=== PATIENT | female | born 1960 | race Two or more races ===

== ENCOUNTER 2024-10-11 11:48 | Emergency (ER) | payer OTHER ==
[~2024-10-11] VITALS: Ht 160 cm; Wt 72.6 kg
[2024-10-11] MEDS ORDERED: CLONAZEPAM0.5 MG PO (12:20)
[2024-10-11] MEDS ORDERED: NORVASC2.5 M1 PO (12:21)
[2024-10-11] MEDS ORDERED: PROZAC10 MG PO (12:21)
[2024-10-11] MEDS ORDERED: KETOROLAC TROMETHAMINE 30 MG VIAL ONE (13:41)
[2024-10-11] MEDS ORDERED: MAG HYDROX/ALUMINUM HYD/SIMETH 30 ML BLIST.PACK PO ONE ×2 (13:41→13:45)
[2024-10-11] MEDS ORDERED: FAMOTIDINE/PF 20 MG/2 ML VIAL ONE (13:42)
[2024-10-11] MEDS ORDERED: FAMOTIDINE/PF 20 MG/2 ML VIAL IV PUSH ONE (13:45)
[2024-10-11] MEDS ORDERED: ONDANSETRON HCL 2 MG/ML VIAL IV ONE (13:45)
[2024-10-11] MEDS ORDERED: KETOROLAC TROMETHAMINE 30 MG VIAL IV ONE (13:45)
[2024-10-11] MEDS ORDERED: 0.9 % SODIUM CHLORIDE 1,000 ML IV SCH (13:45)
[2024-10-11 13:56] LABS: BASO % 0.5 % (0.1-1.2); EOS # 0.02 (0.04-0.54); EOS % 0.2 % (0.7-7.0); HEMATOCRIT 40.3 % (34.1-44.9); LYMPH # 1.31 (1.18-3.74); LYMPH % 15.4 % (19.3-53.1); MEAN CORPUSCULAR HEMOGLOBIN 32.4 pg (25.6-32.2); MONO # 0.57 (0.24-0.82); MONO % 6.7 % (4.7-12.5); NEUT # 6.52 (1.56-6.13); PLATELET COUNT 243 K/uL (163-369); RED BLOOD COUNT 4.32 M/uL (3.93-5.22); RED CELL DISTRIBUTION WIDTH 11.7 % (11.6-14.4)
[2024-10-11] MEDS ORDERED: ONDANSETRON HCL 2 MG/ML VIAL ONE (14:01)
[2024-10-11 14:59] LABS: ALBUMIN 3.8 gm/dL (3.4-5.0); BILIRUBIN TOTAL 0.57 mg/dL (0.3-1.2); CALCIUM 9.3 mg/dL (8.5-10.1); CREATININE SERUM 0.62 mg/dL (0.55-1.02); GFR 97.22; GLOBULINA 3.2 G/DL (2.4-3.5); POTASSIUM 4.05 mEq/L (3.5-5.1)
[2024-10-11] MEDS ORDERED: MORPHINE SULFATE 2 MG/ML CARTRIDGE IV ONE (15:15)
[2024-10-11] MEDS ORDERED: HYOSCYAMINE SULFATE 0.125 MG TAB.SUBL ONE (18:24)
[2024-10-11] MEDS ORDERED: HYOSCYAMINE SULFATE 0.125 MG TAB.SUBL SL ONE (18:30)
[2024-10-11] MEDS ORDERED: MORPHINE SULFATE 4 MG/ML VIAL IV ONE (20:45)
[2024-10-12] MEDS ORDERED: KETOROLAC TROMETHAMINE 30 MG VIAL ONE (07:59)
[2024-10-12] MEDS ORDERED: KETOROLAC TROMETHAMINE 30 MG VIAL IV ONE (08:00)
== END 2024-10-12 07:26 | disposition home or self-care (01) ==
LOC: ER 11:48
PROVIDERS: Emergency Medicine
DX: K29.70 Gastritis, unspecified, without bleeding (principal); K21.9 Gastro-esophageal reflux disease without esophagitis; R10.9 Unspecified abdominal pain; I10 Essential (primary) hypertension
CPT/HCPCS: 36415; 74177; 93005; 96365; 96366; 99284; J1885 ×2; J2270; J2405; J3490; J7030; Q9965